=== PATIENT | male | born 1985 | race Caucasian/White ===

== ENCOUNTER 2023-09-09 21:46 | Inpatient (IN) | payer OTHER ==
[2023-09-09 22:20] VITALS: BMI 21.5
[2023-09-09] MEDS ORDERED: guaiFENesin 600 MG TABLET.ER (FP) PO PRN (23:00)
[2023-09-09] MEDS ORDERED: LOPERAMIDE HCL 2 MG CAPSULE PO PRN (23:00)
[2023-09-09] MEDS ORDERED: DICYCLOMINE HCL 10 MG CAPSULE PO PRN (23:00)
[2023-09-09] MEDS ORDERED: BENZONATATE 200 MG CAPSULE PO PRN (23:00)
[2023-09-09] MEDS ORDERED: POLYETHYLENE GLYCOL (HEALTHYLAX) 3350 17 GM PACKET PO PRN (23:00)
[2023-09-09] MEDS ORDERED: NALOXONE HCL (KLOXXADO) 8 MG SPRAY NS PRN (23:00)
[2023-09-09] MEDS ORDERED: IBUPROFEN 400 MG TABLET (FP) PO PRN (23:00)
[2023-09-09] MEDS ORDERED: P-EPHED 60MG/TRIPROLIDI 2.5MG TABLET PO PRN (23:00)
[2023-09-09] MEDS ORDERED: BENZOCAINE/MENTHOL (CHLORASEPTIC ) LOZENGE MM PRN (23:00)
[2023-09-09] MEDS ORDERED: IBUPROFEN 600 MG TABLET (FP) PO PRN (23:00)
[2023-09-09] MEDS ORDERED: BISMUTH SUBSALICYLATE 524 MG/30 ML PO PRN (23:00)
[2023-09-09] MEDS ORDERED: NALOXONE HCL 0.4 MG/ML VIAL IM PRN (23:00)
[2023-09-09] MEDS ORDERED: ACETAMINOPHEN 325 MG TABLET (FP) PO PRN (23:00)
[2023-09-09] MEDS ORDERED: ONDANSETRON *ODT* 4 MG TABLET SL PRN (23:00)
[2023-09-10] MEDS: diazePAM 5 MG TABLET PO SCH (02:05)
[2023-09-10] MEDS: diazePAM 5 MG TABLET PO PRN (02:06)
[2023-09-10] MEDS ORDERED: methaDONE HCL 10 MG TABLET PO ONE (08:16)
[2023-09-10] MEDS: METHOCARBAMOL 500 MG TABLET PO PRN (08:52)
[2023-09-10] MEDS: NICOTINE POLACRILEX 2 MG GUM BUC PRN (09:56)
[2023-09-10] MEDS: PRENATAL VITAMINS W/ FOLIC ACID TABLET (FP) PO SCH (10:35)
[2023-09-10 11:47] LABS: POTASSIUM 4.6 mmol/L (3.5-5.1)
[2023-09-10 11:57] LABS: ALBUMIN 3.2 g/dl (3.4-5.0)
[2023-09-10 11:58] LABS: BLOOD UREA NITROGEN 20.1 mg/dL (7-18)
[2023-09-10 11:59] LABS: CALCIUM 8.9 mg/dL (8.5-10.1)
[2023-09-10 12:00] LABS: CREATININE 0.7 mg/dL (0.55-1.3)
[2023-09-10 12:01] LABS: TOT PROT 6.8 g/dl (6.4-8.2)
[2023-09-10 12:02] LABS: BILIRUBIN,TOTAL 0.3 mg/dL (0.2-1)
[2023-09-10 12:06] LABS: HEMATOCRIT 37.8 % (35.4-49); HEMOGLOBIN 12.8 GM/dL (11.7-16.9); MCH 27.7 pg (25.7-33.7); MCHC 33.7 g/dl (32.0-35.9); MEAN CELL VOLUME 82.2 fl (80-96); MEAN PLT VOLUME 7.2 fl (7.5-11.1); PLATELET COUNT 369 10^3/uL (134-434); RDW 15.7 % (11.9-15.9); WHITE BLOOD COUNT 5.4 K/mm3 (4.0-10.0)
[2023-09-10] MEDS: NICOTINE POLACRILEX 2 MG LOZENGE BC PRN (14:42)
[2023-09-10] MEDS: MAG HYDROX/AL HYDROX/SIMETH 30 ML UNIT-DOSE CUP PO PRN (17:24)
[2023-09-10] MEDS: THIAMINE 100 MG TABLET PO SCH (22:20)
[2023-09-10] MEDS: MELATONIN 5 MG TABLETS PO SCH (22:20)
[2023-09-11] MEDS: diazePAM 5 MG TABLET PO SCH (05:17)
[2023-09-11] MEDS ORDERED: methaDONE HCL 10 MG TABLET PO SCH (06:00)
[2023-09-11] MEDS: MAGNESIUM HYDROX 2400MG/30ML ORAL SUSPENSION 30 ML CUP PO PRN (09:05)
[2023-09-12] MEDS: diazePAM 5 MG TABLET PO SCH (05:32)
[2023-09-13] MEDS: diazePAM 5 MG TABLET PO ONE (05:22)
[2023-09-13 09:13] VITALS: BP 123/67; PULSE 60; RESP 16; TEMP 98.4
== END 2023-09-13 09:20 | disposition home or self-care (01) | DRG 773 ==
LOC: YASAS 21:46 → Y6N 09-10 01:34
PROVIDERS: ADMIT Allergy & Immunology; ATTEND Surgery
PROC: HZ2ZZZZ Detoxification Services for Substance Abuse Treatment (ICD-10-PCS; principal; 2023-09-10)
DX: F13.230 Sedative, hypnotic or anxiolytic dependence with withdrawal, uncomplicated (principal); F11.20 Opioid dependence, uncomplicated; F14.20 Cocaine dependence, uncomplicated; F12.20 Cannabis dependence, uncomplicated; F17.210 Nicotine dependence, cigarettes, uncomplicated
CPT/HCPCS: 36415; 71045-TC-FY; 80053; 80305; 80307; 85027; 86780; 93005; 93010